=== PATIENT | male | born 1990 | race Caucasian/White ===

== ENCOUNTER 2017-11-17 21:06 | Emergency (ER) | payer OTHER ==
[~2017-11-17] VITALS: Ht 175.3 cm; Wt 95.0 kg
[~2017-11-17 21:06] MED LIST: AMOXICILLIN500 MG PO; AMOXICILLIN875 MG OR; AUGMENTIN XR OR; CEPHALEXIN500 MG PO; FLEXERIL PO; KEFLEX500 MG PO; MEDDOSEPAK; MEDDOSEPAK OR; MOTRIN800 MG PO; NO; NO HOME MEDS; PERCOCET 10/31 COMBO PO; ROCEPHIN 2250 MG/VIA IM; TORADOL PO; ULTRAM50 MG OR
[2017-11-17] MEDS ORDERED: AMOXICILLIN500 MG PO (23:08)
[2017-11-17 23:29] VITALS: BP 132/89
== END 2017-11-17 23:36 | disposition home or self-care (01) | DRG 159 ==
LOC: ED 21:06
PROC: 0CQ0XZZ Repair Upper Lip, External Approach (ICD-10-PCS; principal; 2017-11-17)
DX: S01.511A Laceration without foreign body of lip, initial encounter (principal); W21.07XA Struck by softball, initial encounter; Y93.64 Activity, baseball; Y92.830 Public park as the place of occurrence of the external cause